=== PATIENT | female | born 1950 | race Caucasian/White ===

== ENCOUNTER 2019-04-29 05:40 | Outpatient (CLI) | payer MEDICARE, OTHER ==
[~2019-04-29] VITALS: Ht 162.6 cm; Wt 95.3 kg
[~2019-04-29 05:40] MED LIST: CALC-676 PO; CITA20TA4 PO; GLUC500C2 PO; MULT-608 PO; PYRI25TA13 PO; VALA500T4 PO; estrogen; vitamin b-12
[2019-04-29] MEDS ORDERED: CITA10TA7 PO (10:42)
== END 2019-04-29 10:56 | disposition home or self-care (01) ==
LOC: PREOP 05:40
PROVIDERS: ATTEND Surgery
DX: Z01.818 Encounter for other preprocedural examination (principal)

== ENCOUNTER 2019-05-01 09:01 | Day surgery (SDC) | payer MEDICARE, OTHER ==
[2019-05-01] VITALS (12 sets, daily range): BP systolic 119–150; BP diastolic 54–74
[~2019-05-01] VITALS: Ht 162.6 cm; Wt 95.3 kg
[~2019-05-01 09:01] MED LIST changes: +CITA10TA7 PO
--- NOTE | 2019-05-01 09:04 | Progress Note-Pre Operative ---
Pre-Operative Progress Note H&P Reviewed The H&P was reviewed, patient examined and no changes noted. Date Seen by Provider: May 01, 2019 Time Seen by Provider: 09:00 Date H&P Reviewed: May 01, 2019 Time H&P Reviewed: 09:00 Pre-Operative Diagnosis: chronic calc cholecystitis, dysphagia, GERD LATOSHA KEMP MD May 01, 2019 09:04
[2019-05-01] MEDS ORDERED: HYDR-34 PO (09:06)
[2019-05-01] MEDS ORDERED: PANT40TA2 PO (09:06)
--- NOTE | 2019-05-01 09:06 | Discharge Inst-Surgical ---
D/C Lap Instructions-JUSTO New, Converted, or Re-Newed RX: RX on Chart Follow Up Appt in 2 weeks Activity as tolerated No driving for 24 hours No driving while on pain medications Incentive Spirometry use every 2 hours while awake Regular Diet Symptoms to Report: Fever over 101 degree F, Nausea/Vomiting Infection Signs and Symptoms to report: Increased redness, Foul odor of wound, Increased drainage Bathing instructions: May shower Operative Area Clean/Dry; Keep incision clean/dry If any problems/questions: Contact your physician or go to Emergency Room LATOSHA KEMP MD May 01, 2019 09:06
[2019-05-01] MEDS ORDERED: BUP/EPI 0.5% 1:200,000 (SENSORCAINE) 30 ML VIAL ONE (09:08)
[2019-05-01] MEDS ORDERED: LACTATED RINGERS 1,000 ML IV PRN ×2 (09:10)
[2019-05-01] MEDS ORDERED: oxyCODONE/APAP 5/325MG (PERCOCET 5) TABLET PO PRN (09:15)
[2019-05-01] MEDS ORDERED: ONDANSETRON 4 MG/2 ML (SDV) Z0FRAN IVP PRN ×2 (09:15→12:00)
[2019-05-01] MEDS ORDERED: ACETAMINOPHEN 325 MG TABLET PO PRN (09:15)
[2019-05-01] MEDS ORDERED: morphine INJ 10 MG/ML 1ML (SYR OR VIAL) IVP PRN ×2 (09:15)
[2019-05-01] MEDS ORDERED: ceFAZolin 2 GM/50 ML NS 50 ML IV ONE (09:15)
[2019-05-01] MEDS ORDERED: MIDAZOLAM 2 MG/2 ML (VERSED) VIAL ONE (09:16)
[2019-05-01] MEDS ORDERED: LIDOCAINE PF 2% 5 ML (XYLOCAINE) VIAL ONE (09:16)
[2019-05-01] MEDS ORDERED: proPOfol 200 MG/20 ML (DIPRIVAN) VIAL IV ONE (09:16)
[2019-05-01] MEDS ORDERED: ROCURONIUM 10 MG/ML 5 ML SYRINGE IV ONE (09:16)
[2019-05-01] MEDS ORDERED: fentaNYL INJECTION 100 MCG/2 ML AMP ONE (09:16)
[2019-05-01] MEDS ORDERED: SEVOFLURANE (ULTANE) 15 ML INHAL SOLN ONE ×3 (09:16→11:36)
[2019-05-01] MEDS ORDERED: ONDANSETRON 4 MG/2 ML (SDV) Z0FRAN ONE (09:18)
[2019-05-01] MEDS ORDERED: DEXAMETHASONE 10 MG/ML (DECADRON) 1 ML VIAL ONE (09:18)
[2019-05-01 09:35] LABS: BASOPHILS % (AUTO) 1 % (0-10); EOSINOPHILS # (AUTO) 0.1 10^3/uL (0.0-0.3); EOSINOPHILS % (AUTO) 3 % (0-10); HEMATOCRIT 40 % (35-52); HEMOGLOBIN 13.4 G/DL (11.5-16.0); LYMPHOCYTES # (AUTO) 1.7 X 10^3 (1.0-4.0); LYMPHOCYTES % (AUTO) 45 % (12-44); MEAN CORPUSCULAR HEMOGLOBIN 32 PG (25-34); MEAN CORPUSCULAR HGB CONC 34 G/DL (32-36); MEAN CORPUSCULAR VOLUME 96 FL (80-99); MEAN PLATELET VOLUME 9.8 FL (7.4-10.4); MONOCYTES # (AUTO) 0.4 X 10^3 (0.0-1.0); MONOCYTES % (AUTO) 10 % (0-12); NEUTROPHILS # (AUTO) 1.5 X 10^3 (1.8-7.8); NEUTROPHILS % (AUTO) 41 % (42-75); PLATELET COUNT 265 10^3/uL (130-400); RED CELL DISTRIBUTION WIDTH 11.9 % (10.0-14.5); WHITE BLOOD COUNT 3.7 10^3/uL (4.3-11.0)
[2019-05-01] MEDS ORDERED: NEOSTIGMINE 1 MG/ML 5 ML SYRINGE ONE (11:06)
[2019-05-01] MEDS ORDERED: GLYCOPYRROLATE 0.2 MG/ML (ROBINUL) 2 ML VIAL ONE (11:06)
--- NOTE | 2019-05-01 11:35 | Progress Note-Post Operative ---
Post-Operative Progess Note Surgeon (s)/Frame Carver Spindle (s) Surgeon Dr. Bebeto Madrigal M.D. Frame Carver Spindle: Arnold Read APRN Pre-Operative Diagnosis chronic calc cholecystitis, dysphagia, GERD Post-Operative Diagnosis Chronic calculous cholecystitis, Reflux esophagitis stage II, small Hiatal Hernia (2.5 cm), distal esophageal stricture, mild-moderate gastritis. Procedure & Operative Findings Date of Procedure 05/01/19 Procedure Performed/Findings Laparoscopic Cholecystectomy, EGD with Biopsy and balloon dilation Anesthesia Type GET Estimated Blood Loss Estimated blood loss (mL): minimal Specimens/Packing Specimens Removed 1. Gallbladder 2. Antrum 3. GE Junction ARNOLD READ MACHINE FOLDER May 01, 2019 11:35
[2019-05-01] MEDS ORDERED: MEPERIDINE (DEMEROL) INJ 50 MG/ML IVP ONE (12:00)
[2019-05-01] MEDS ORDERED: fentaNYL INJECTION 100 MCG/2 ML AMP IVP ONE (12:00)
[2019-05-01] MEDS ORDERED: PROMETHAZINE INJ 25 MG/ML (PHENERGAN) AMP IVP ONE (12:00)
[2019-05-01] MEDS: fentaNYL INJECTION 100 MCG/2 ML AMP ONE ×2 (12:15→14:27)
--- NOTE | 2019-05-01 14:34 | Anesthesia-General Post-Op ---
General Patient Condition Mental Status/LOC: Same as Preop Cardiovascular: Satisfactory Nausea/Vomiting: Absent Respiratory: Satisfactory Pain: Controlled Complications: Absent Post Op Complications Complications None Follow Up Care/Instructions Patient Instructions None needed. Anesthesia/Patient Condition Patient Condition Patient is doing well, no complaints, stable vital signs, no apparent adverse anesthesia problems. FABI SEPULVEDA DO May 01, 2019 14:34
--- NOTE | 2019-05-01 18:29 | OPERATIVE REPORT ---
DATE OF SERVICE: 05/01/2019 PREOPERATIVE DIAGNOSES: 1. Symptomatic chronic calculous cholecystitis. 2. Dysphagia. POSTOPERATIVE DIAGNOSES: Multiple large gallstones, distal esophageal stricture, small hiatal hernia 2.5 cm in size, and moderate severity gastritis. PROCEDURES PERFORMED: Laparoscopic cholecystectomy. Esophagogastroduodenoscopy with biopsy and balloon dilatation. SURGEON: Latosha Kemp MD. PIN TICKET MACHINE OPERATOR: Arnold Nunez APRN. ANESTHESIA: General endotracheal. ESTIMATED BLOOD LOSS: Minimal. FINDINGS: Multiple large gallstones, distal esophageal stricture, small hiatal hernia 2.5 cm in size, and moderate severity gastritis. DISPOSITION: The patient tolerated the procedure well. INDICATIONS: The patient is a 68-year-old female, who has had issues with pain in the right upper abdominal quadrant for a multitude of years. She felt that this was initially indigestion because she has had issues with gastroesophageal reflux disease as well as an esophageal stricture. She says that this did worsen over time and she underwent evaluation, which did show multiple gallstones. She again is having issues with dysphagia and difficulty swallowing of lean meats as well as dry grains. DESCRIPTION OF PROCEDURE: The patient was brought to the operating room, laid supine on the table. After adequate IV pain and sedative medications and general endotracheal intubation, the abdomen was prepped and draped in standard surgical fashion. A 0.5% Marcaine with epinephrine was then used to anesthetize the overlying skin in the left upper abdominal quadrant. A small transverse skin incision made using a 15-blade. A #0 silk suture was applied to the medial aspect of the incision for traction and a Veress needle inserted with a low opening pressure of 0 mmHg and the abdomen was then insufflated to 15 mmHg pressure. The Veress needle was removed and a 5 mm Xcel trocar placed followed by a 5 mm 45-degree angle laparoscope visualizing the peritoneal cavity. A 4-quadrant abdominal exploration was performed. There was a distended gallbladder with visible stones. The remainder of the omentum, small bowel appeared normal. We then proceed to place a supraumbilical 10 mm port after the skin and peritoneal lining were anesthetized using 0.5% Marcaine with epinephrine and a transverse skin incision made using a 15-blade. In a similar manner, a right upper abdominal quadrant 5 mm port was placed. The patient was placed in reverse Trendelenburg position as well as plane right side up, left side down. The hepatoduodenal ligament was then opened using electrocautery as well as blunt dissection using the hook instrument. The entire critical view of safety was identified including the cystic duct and artery as the only two structures going into the gallbladder as well as the cystic plate behind the proximal gallbladder. A timeout was then taken and the cystic duct and artery were then clipped proximally, distally and cut with EndoShears. The gallbladder was then dissected off the liver bed using cautery and the hook instrument with visualization of good hemostasis as well as no leaking ducts of Luschka. The gallbladder was removed through the 10 mm port site using an EndoCatch bag. The 10 mm port site fascia and peritoneum were then closed under direct visualization using Ernesto-Nayana device and #0 Vicryl suture. The abdomen was then desufflated and remaining ports removed. All skin incisions were closed using 4-0 Monocryl subcuticular sutures. Wounds were then cleaned and covered with Dermabond. Under the same anesthesia, the EGD portion of the procedure was done. The mouthpiece was applied. The endoscope was placed in the mouth, visualizing the pharynx and hypopharyngeal region. Vocal cords, epiglottis and vallecula identified and appeared to be normal. Endoscope was then gently intubated. The esophageal opening and esophagus insufflated. Endoscope was then advanced to the first, second and third portion of esophagus to the level of the GE junction and reflux esophagitis, stage II identified. There was also distal esophageal stricture. A biopsy was taken with forceps with visualization of good hemostasis. The endoscope was then advanced into the stomach and endoscope retroflexed, visualizing a small hiatal hernia approximately 2.5 cm in size. The stricture was also identified on the retroflexed view. There was moderate severity gastritis. No formal ulcers, polyps, or any neoplasms. A biopsy was taken of the antrum to rule out H. pylori with visualization of good hemostasis. The endoscope was then advanced into the pylorus and the first and second portion of the duodenum, which appeared normal with no distal obstructions. We then proceeded with dilatation of esophageal stricture. The balloon was placed in the stomach and pulled back to the area of stricture. We first proceeded to 2 atmospheres of pressure with no resistance. We then proceeded to 6 atmospheres of pressure or 20mm diameter with moderate resistance and left this in place for approximately 60 seconds. The balloon was then removed and desufflated. The endoscope was then slowly withdrawn while taking a second look and suctioning residual air with no additional findings. The patient tolerated the procedure well. We will start IV and oral pain medication as well as a clear liquid diet. Once she is tolerating clears, has good pain control with oral pain medications and ambulating well, we will discharge her home. We will also start her on Protonix 40 mg daily. Job ID: [id number] DocumentID: [id number] Dictated Date: 05/01/2019 12:14:14 Acid Remover Date: 05/01/2019 18:28:45 Dictated By: LATOSHA KEMP MD MTDD
== END 2019-05-01 14:35 | disposition home or self-care (01) ==
LOC: SDC 09:01
PROVIDERS: ATTEND Surgery
DX: K80.10 Calculus of gallbladder with chronic cholecystitis without obstruction (principal); K29.50 Unspecified chronic gastritis without bleeding; K22.2 Esophageal obstruction; K44.9 Diaphragmatic hernia without obstruction or gangrene; K21.9 Gastro-esophageal reflux disease without esophagitis; F32.9 Major depressive disorder, single episode, unspecified; F41.9 Anxiety disorder, unspecified; E66.9 Obesity, unspecified; Z68.36 Body mass index [BMI] 36.0-36.9, adult; Z79.899 Other long term (current) drug therapy
CPT/HCPCS: 36415; 85025; 87081

== ENCOUNTER 2023-02-25 16:01 | Emergency (ER) | payer MEDICARE, OTHER ==
[~2023-02-25] VITALS: Ht 162 cm; Wt 100.0 kg
[~2023-02-25 16:01] MED LIST changes: -CITA10TA7 PO; +CITA10TA9 PO; +HYDR-34 PO; +PANT40TA2 PO
--- NOTE | 2023-02-25 16:31 | ED Upper Extremity ---
General Chief Complaint: Trauma-Non Activation Stated Complaint: FELL OUTSIDE AND HURT LEFT ARM Nursing Triage Note: PT TO TRIAGE BY W/C PT HAD FALL AT HOME, TRIPPED OVER GARDEN HOSE. PT DENIES LOC BUT HAS L SHOULDER PAIN 07/28. PT HAS ABRASION TO L SIDE OF FACE. Source: patient Exam Limitations: no limitations History of Present Illness Date Seen by Provider: Feb 25, 2023 Time Seen by Provider: 16:19 Initial Comments 72-year-old female presents to the ED after she tripped on a hose in her garden and fell at 3 PM. She states she landed on her left shoulder and also hit the left side of her face. She denies being dizzy before the fall, denies loss of consciousness. She has abrasions to the left side of her face on the left cheek and above left eye. She is uncertain of her last tetanus shot. She does not take any aspirin or other blood thinners. Allergies and Home Medications Allergies Coded Allergies: No Known Drug Allergies (Unverified , 04/29/19) Patient Home Medication List Home Medication List Reviewed: Yes Citalopram Hydrobromide (Citalopram HBr) 10 Mg Tablet, 10 MG PO DAILY, (Reported) Entered as Reported by: AUBREE BOYER on 04/29/19 1042 Hydrocodone Bit/Acetaminophen (Lortab 7.5 Mg Tablet) 1 Ea Tablet, 1 EACH PO Q4H PRN for PAIN-MODERATE Prescribed by: LATOSHA KEMP on 05/01/19 0906 Oxycodone HCl/Acetaminophen (Percocet 5-325 mg Tablet) 1 Each Tablet, 1 TAB PO Q4H Prescribed by: Mirtha Anderson on 02/25/23 1737 Pantoprazole Sodium (Protonix) 40 Mg Tablet.dr, 40 MG PO DAILY Prescribed by: LATOSHA KEMP on 05/01/19 0906 Review of Systems Constitutional: see HPI Past Spckepv-Gsuxol-Kxzrwa Hx Patient Social History Tobacco Use?: No Substance use?: No Alcohol Use?: No Pt feels they are or have been: No Immunizations Up To Date First/Initial COVID19 Vaccinat: YES Second COVID19 Vaccination Wilmer: YES Third COVID19 Vaccination Date: YES Seasonal Allergies Seasonal Allergies: No Past Medical History Surgery/Hospitalization HX: GALL BLADDER, DEPRESSION Surgeries: Yes (D&C) Respiratory: No Cardiac: No Neurological: No Reproductive Disorders: No Sexually Transmitted Disease: No HIV/AIDS: No Genitourinary: No Gastrointestinal: Yes (DYSPHAGIA) Hiatal Hernia, Gall Bladder Disease Musculoskeletal: Yes Arthritis Endocrine: No HEENT: Yes (GLASSES) Loss of Vision: Denies Hearing Impairment: Denies Cancer: No Psychosocial: Yes Anxiety, Depression Integumentary: No Blood Disorders: No Adverse Reaction/Blood Tranf: No (N/A) Physical Exam Vital Signs Vital Signs - First Documented 02/25/23 16:10 Temp 36.4 Pulse 53 Resp 18 B/P (MAP) 147/103 (118) Pulse Ox 96 O2 Delivery Room Air Capillary Refill : Less Than 3 Seconds Height, Weight, BMI Height: 5'4.00" Weight: 210lbs. 0.0oz. 95.348649jl; 38.00 BMI Method: General Appearance: WD/WN, no apparent distress Neck: supple, normal inspection Cardiovascular: regular rate, rhythm, no gallop, no JVD, no murmur Respiratory: lungs clear, normal breath sounds, no respiratory distress, no accessory muscle use Shoulder: non-tender (Left upper arm is tender to palpation) Elbow/Forearm: normal inspection, no evidence of injury, Left Wrist: Yes normal inspection, Yes no evidence of injury Hand: normal inspection, no evidence of injury, Left Neurologic/Psychiatric: alert, normal mood/affect Skin: normal color, warm/dry Progress/Results/Core Measures Results/Orders My Orders Orders - MIRTHA ANDERSON APRN Shoulder, Left, 3 Views (02/25/23 16:26) Humerus, Left, 2 Views (02/25/23 16:26) Ct Head/Cervical Spine Wo (02/25/23 16:26) Dipht,Pertuss(Acell),Tet Adult (Boostrix (02/25/23 16:45) Fentanyl Inj (Sublimaze Injection) (02/25/23 17:30) Oxycodone/Acet 10/325mg Tablet (Percocet (02/25/23 17:30) Medications Given in ED Current Medications Medications Dose Ordered Sig/Bernice Route Start Time Stop Time Status Last Admin Dose Admin Diphtheria/ Tetanus/Acell Pertussis 0.5 ml ONCE ONCE IM 02/25/23 16:45 02/25/23 16:46 DC 02/25/23 17:33 0.5 ML Fentanyl Citrate 50 mcg ONCE ONCE IM 02/25/23 17:30 02/25/23 17:31 DC 02/25/23 17:33 50 MCG Oxycodone/ Acetaminophen 1 tab ONCE ONCE PO 02/25/23 17:30 02/25/23 17:31 DC 02/25/23 17:33 1 TAB Vital Signs/I&O 02/25/23 16:10 Temp 36.4 Pulse 53 Resp 18 B/P (MAP) 147/103 (118) Pulse Ox 96 O2 Delivery Room Air Blood Pressure Mean: 118 Progress Progress Note : Time: 16:30 Progress Note Patient seen and evaluated, resting in wheelchair, no acute distress. Based on exam and symptoms, x-ray of left shoulder and left humerus ordered, CT head and C-spine ordered, tetanus ordered. 1722 x-ray and CT reviewed. Positive for displaced comminuted fracture of the left humeral head and neck. CT head and C-spine negative for acute abnormality. Results discussed with patient. Spoke with Dr. Valentine, orthopedics, regarding fracture. He recommends patient be placed in a sling and follow-up outpatient. He states he will likely refer patient to Dr. Garcia, at [facility]. This was discussed with patient and family. Discharge instructions and return precautions provided. Diagnostic Imaging Diagonstic Imaging: Xray Plain Films/CT/US/NM/MRI: other (Humerus) Comments [facility], [place] NAME: LAUREN RAO [employer] REC#: [id number] PT STATUS: REG ER : 1950 PHYSICIAN: MIRTHA ANDERSON APRN ADMIT DATE: 02/25/23/ER Signed Date of Exam:02/25/23 HUMERUS, LEFT, 2 VIEWS INDICATION: Left shoulder injury. FINDINGS: AP and lateral views of the left humerus show an anterior displaced comminuted fracture of the left humeral neck. The humeral shaft and elbow were unremarkable. IMPRESSION: Displaced comminuted fracture of the left humeral head and neck. Dictated by: Dictated on workstation # [id number] Dict: 02/25/23 1644 Trans: 02/25/231711 AS6 [id number] Interpreted by: BRICE CERDA MD Electronically signed by: BRICE CERDA MD 02/25/231711 Diagonstic Imaging: Xray Plain Films/CT/US/NM/MRI: other (Shoulder) Comments [facility], [place] NAME: LAUREN RAO [employer] REC#: [id number] PT STATUS: REG ER : 1950 PHYSICIAN: MIRTHA ANDERSON APRN ADMIT DATE: 02/25/23/ER Signed Date of Exam:02/25/23 SHOULDER, LEFT, 3 VIEWS INDICATION: Left shoulder injury. FINDINGS: Three views of the left shoulder show a comminuted displaced impacted fracture of the proximal left humerus with a fracture across the humerus neck and another component extending through the humeral head. IMPRESSION: Comminuted impacted fracture of the humeral head and neck. Dictated by: Dictated on workstation # [id number] Dict: 02/25/23 1643 Trans: 02/25/231711 AS6 [id number] Interpreted by: BRICE CERDA MD Electronically signed by: BRICE CERDA MD 02/25/231711 Diagonstic Imaging: CT Plain Films/CT/US/NM/MRI: c-spine, head Comments [facility], [place] NAME: LAUREN RAO [employer] REC#: [id number] PT STATUS: REG ER : 1950 PHYSICIAN: MIRTHA ANDERSON APRN ADMIT DATE: 02/25/23/ER Draft Date of Exam:02/25/23 CT HEAD/CERVICAL SPINE WO CLINICAL INDICATION: Patient is status post fall at home. Patient tripped over garden hose. EXAM: Head CT without IV contrast with sagittal and coronal reformations. Axial CT scan of the cervical spine with sagittal and coronal reformations. Auto Exposure Controls were utilized during the CT exam to meet ALARA standards for radiation dose reduction. COMPARISON: None. FINDINGS: Head CT: There is no evidence of acute cerebral infarct, intracranial hemorrhage, or gross mass effect. The brain parenchymal volume appears appropriate for patient's age. There is normal tavarez-white matter distinction. There is no significant midline shift or herniation. There is no evidence of hydrocephalus. The basal cisterns are unremarkable. There is a small area of extracranial soft tissue swelling involving the left periorbital and left malar region. There is no fracture seen. Otherwise, the skull, extracranial soft tissue, and orbits are unremarkable. The paranasal sinuses are unremarkable. Temporal bones show no significant abnormality. Cervical spine: There is no acute cervical spine fracture or dislocation. Bilateral cervical ribs involving the C7 vertebra are seen which are partially fused with the bilateral T1 ribs. There is severe left C5-C6 neural foramen narrowing due to hypertrophic uncinate spurs. There is rppvsqeo-[id number] right C6-C7 neural foramen narrowing due to uncinate spurs and facet arthropathy. There is no significant neck soft tissue abnormality. Visualized upper lung zarco show no significant abnormality. IMPRESSION: 1: There is no CT evidence of acute intracranial process. 2: There is a small amount of extracranial soft tissue swelling involving left malar and left periorbital region. There is no skull fracture. 3: There is no acute cervical spine fracture or dislocation. Dictated on workstation # [id number] Dict: 02/25/23 1654 Trans: 02/25/23 1709 AS6 [id number] Interpreted by: SHANNA FORD MD Electronically signed by: Departure Impression Primary Impression: Fracture of neck of humerus Qualified Codes: S42.212A - Unspecified displaced fracture of surgical neck of left humerus, initial encounter for closed fracture Additional Impressions: Fracture of head of humerus Qualified Codes: S42.292A - Other displaced fracture of upper end of left humerus, initial encounter for closed fracture Fall from ground level Traumatic hematoma of face Qualified Codes: S00.83XA - Contusion of other part of head, initial encounter Disposition: 01 HOME, SELF-CARE Condition: Stable Departure-Patient Inst. Decision time for Depature: 17:33 Referrals: TERRY WATTS DO (PCP) Primary Care Physician HANS VALENTINE MD Patient Instructions: How to Use a Shoulder Sling, Shoulder Fracture Add. Discharge Instructions: Take Percocet as needed for pain, it can cause constipation so only take when needed. You may also take 800 mg of ibuprofen every 8 hours as needed with food for pain. Call the orthopedic office tomorrow so that they can refer you to Dr. Garcia at [facility], I have also included Dr. Garcia's contact information below. Wear the sling to help stabilize her shoulder. Return for numbness or tingling in your hand or arm, severe pain, or any other new, concerning, worsening symptoms. Chinmay Garcia [facility] [address] [place], [place] [address] All discharge instructions reviewed with patient and/or family. Voiced understanding. Scripts Oxycodone HCl/Acetaminophen (Percocet 5-325 mg Tablet) 1 Each Tablet 1 TAB PO Q4H for PAIN-MODERATE MDD 6 TABS, #30 TAB 0 Refills Prov: MIRTHA ANDERSON APRN 02/25/23 Copy Copies To 1: TERRY WATTS DO Copies To 2: HANS VALENTINE MD, BRITTANY R APRN Feb 25, 2023 16:31
[2023-02-25] MEDS ORDERED: TETANUS,DIPTH,PERTUSS P/F (BOOSTRIX) 0.5 ML VIAL IM ONE (16:45)
--- NOTE | 2023-02-25 16:47 | Diagnostic Imaging Report ---
INDICATION: Left shoulder injury. FINDINGS: Three views of the left shoulder show a comminuted displaced impacted fracture of the proximal left humerus with a fracture across the humerus neck and another component extending through the humeral head. IMPRESSION: Comminuted impacted fracture of the humeral head and neck. Dictated by: Dictated on workstation # [id number]
--- NOTE | 2023-02-25 16:50 | Diagnostic Imaging Report ---
INDICATION: Left shoulder injury. FINDINGS: AP and lateral views of the left humerus show an anterior displaced comminuted fracture of the left humeral neck. The humeral shaft and elbow were unremarkable. IMPRESSION: Displaced comminuted fracture of the left humeral head and neck. Dictated by: Dictated on workstation # [id number]
--- NOTE | 2023-02-25 17:09 | Diagnostic Imaging Report ---
CLINICAL INDICATION: Patient is status post fall at home. Patient tripped over garden hose. EXAM: Head CT without IV contrast with sagittal and coronal reformations. Axial CT scan of the cervical spine with sagittal and coronal reformations. Auto Exposure Controls were utilized during the CT exam to meet ALARA standards for radiation dose reduction. COMPARISON: None. FINDINGS: Head CT: There is no evidence of acute cerebral infarct, intracranial hemorrhage, or gross mass effect. The brain parenchymal volume appears appropriate for patient's age. There is normal tavarez-white matter distinction. There is no significant midline shift or herniation. There is no evidence of hydrocephalus. The basal cisterns are unremarkable. There is a small area of extracranial soft tissue swelling involving the left periorbital and left malar region. There is no fracture seen. Otherwise, the skull, extracranial soft tissue, and orbits are unremarkable. The paranasal sinuses are unremarkable. Temporal bones show no significant abnormality. Cervical spine: There is no acute cervical spine fracture or dislocation. Bilateral cervical ribs involving the C7 vertebra are seen which are partially fused with the bilateral T1 ribs. There is severe left C5-C6 neural foramen narrowing due to hypertrophic uncinate spurs. There is qvlamuvg-tn-ysxbkd right C6-C7 neural foramen narrowing due to uncinate spurs and facet arthropathy. There is no significant neck soft tissue abnormality. Visualized upper lung zarco show no significant abnormality. IMPRESSION: 1: There is no CT evidence of acute intracranial process. 2: There is a small amount of extracranial soft tissue swelling involving left malar and left periorbital region. There is no skull fracture. 3: There is no acute cervical spine fracture or dislocation. Dictated by: Dictated on workstation # [id number]
[2023-02-25] MEDS ORDERED: fentaNYL INJ 100 MCG/2 ML AMP IM ONE (17:30)
[2023-02-25] MEDS ORDERED: oxyCODONE/APAP 10/325MG (PERCOCET 10) TABLET PO ONE (17:30)
[2023-02-25] MEDS ORDERED: OXYC1TAB87 PO (17:37)
[2023-02-25 18:03] VITALS: BP 133/66
== END 2023-02-25 18:04 | disposition home or self-care (01) ==
LOC: EDUNIT# 16:01 → ER 16:04
DX: S42.212A Unspecified displaced fracture of surgical neck of left humerus, initial encounter for closed fracture (principal); S42.292A Other displaced fracture of upper end of left humerus, initial encounter for closed fracture; S00.83XA Contusion of other part of head, initial encounter; Z23 Encounter for immunization; W01.198A Fall on same level from slipping, tripping and stumbling with subsequent striking against other object, initial encounter; Y92.007 Garden or yard of unspecified non-institutional (private) residence as the place of occurrence of the external cause
CPT/HCPCS: 70450; 72125; 73030; 73060; 90715; 99284

== ENCOUNTER → 2023-04-16 | Outpatient (CLI) | payer MEDICARE, OTHER ==
[~2023-04-16] MED LIST changes: +OXYC1TAB87 PO
--- NOTE | 2023-04-16 09:50 | Diagnostic Imaging Report ---
CLINICAL INDICATION: Patient with fracture of the left orbital floor. EXAM: Axial CT scan of the maxillofacial structures without IV contrast . Coronal and sagittal reformations were performed. Auto Exposure Controls were utilized during the CT exam to meet ALARA standards for radiation dose reduction. COMPARISON: None. FINDINGS: PARANASAL SINUSES: FRONTAL: Unremarkable. ETHMOID: Unremarkable. MAXILLARY: There is a minimal sized mucus retention cyst on the floor of the right maxillary sinus. There is minimal mucosal thickening involving the left maxillary sinus. SPHENOID: There is a small amount of secretions seen. OTHER PARANASAL SINUS FINDINGS: There is mild to moderate soft tissue mucosal thickening involving the left nasal cavity. NASAL SEPTUM: There is very minimal rightward nasal septal deviation. VISUALIZED TEMPORAL BONE STRUCTURES: Unremarkable. BONY STRUCTURES/ORBITS: There is no skull or maxillofacial fracture. The orbits are intact. EXTRACRANIAL SOFT TISSUE: The previously seen soft tissue swelling in the left malar region and left periorbital region has resolved. IMPRESSION: 1: There is no skull or maxillofacial fracture. The previously seen soft tissue swelling involving the left malar and left periorbital region has resolved. 2: There is minimal paranasal sinus disease. 3: There is mild rightward nasal septal deviation. Dictated by: Dictated on workstation # [id number]
== END ==
LOC: RAD 08:04
PROVIDERS: ATTEND Internal Medicine
DX: J34.2 Deviated nasal septum (principal); S02.32XA Fracture of orbital floor, left side, initial encounter for closed fracture; X58.XXXA Exposure to other specified factors, initial encounter
CPT/HCPCS: 70486

== ENCOUNTER → 2023-05-28 | Outpatient (CLI) | payer MEDICARE ==
--- NOTE | 2023-05-28 17:13 | Diagnostic Imaging Report ---
INDICATION: Asymptomatic postmenopausal state. Osteoporosis screening. COMPARISON: 02/17/2010. FINDINGS: AP Spine L1-L4: [BMD (g/cm2): 0.839] [T-Score: -3.0] [Z-Score: -2.3] [BMD Previous: 0.933] [BMD % Change: -10.1*] LT Hip Neck: [BMD (g/cm2): 0.717] [T-Score: -2.3] [Z-Score: -1.2] LT Hip Total: [BMD (g/cm2):0.779] [T-Score:-1.8] [Z-Score: -0.9] [BMD Previous: 0.878] [BMD % Change: -11.3] RT Hip Neck: [BMD (g/cm2):0.703] [T-Score:-2.4] [Z-Score:-1.3] RT Hip Total: [BMD (g/cm2):0.830] [T-score:-1.4] [Z-Score:-0.5] [BMD Previous:0.932] [BMD % Change:-10.9*] *Indicates significant change from prior examination based on 95% confidence level. World Health Organization criteria for BMD interpretation classify patients as Normal (T-score at or above -1.0), Osteopenic (T-score between -1.0 and -2.5) or Osteoporotic (T-score at or below -2.5). LIMITATIONS AND MODIFICATION: None. FRACTURE RISK (FRAX SCORE): The ten year probability of (%): Major Osteoporotic Fracture: [14.0] Hip Fracture: [3.7] IMPRESSION: 1. Osteoporosis. 2. Bone mineral density has decreased by a statistically significant amount, as detailed above. 3. See below National Osteoporosis Foundation guidelines on when to potentially initiate pharmacologic therapy. Based on the National Osteoporosis Foundation Guidelines, pharmacologic treatment should be initiated in any of the following, unless clinical conditions suggest otherwise: * Any patient with prior fragility fracture of the hip or vertebrae. A spine fracture indicates 5X risk for subsequent spine fracture and 2X risk for subsequent hip fracture. * Osteoporosis (T-score <-2.5). * Postmenopausal women and men age 50 and older with low bone mass/osteopenia (T-score between -1.0 and -2.5) by DXA and 10-year major osteoporotic fracture greater than 20% or a 10-year probability of hip fracture greater than 3%. These fracture risks are supplied above in the FRAX score, if applicable. * Clinician judgement and/or patient preferences may indicate treatment for people with 10-year fracture probabilities above or below these levels. Dictated by: Dictated on workstation # [id number]
== END ==
LOC: RAD 13:56
PROVIDERS: ATTEND Internal Medicine
DX: M81.0 Age-related osteoporosis without current pathological fracture (principal); M85.80 Other specified disorders of bone density and structure, unspecified site; Z78.0 Asymptomatic menopausal state
CPT/HCPCS: 77080